=== PATIENT | male | born 1975 | race Caucasian/White ===

== ENCOUNTER 2017-09-30 15:57 | Inpatient (IN) ==
[2017-09-30] MEDS ORDERED: SODIUM CHLORIDE 0.9% 1,000 ML IV STA (16:15)
[2017-09-30] MEDS ORDERED: ONDANSETRON 4 MG/2 ML VIAL IV STA (16:15)
[2017-09-30] MEDS ORDERED: CLINDAMYCIN INJ 600 MG in PREMIX 1 EACH IV STA (16:16)
[2017-09-30 16:36] LABS: Basophils % 0.7 % (0.0-0.8); Eosinophils # 0.1 10*3/uL (0.0-0.87); Eosinophils % 0.8 % (0.00-10.9); Hematocrit 42.2 VOL% (42.0-52.0); Hemoglobin 15.4 GM/DL (14.0-18.0); Immature Granulocytes % 0.7 %; Immature Granulocytes Absolute 0.04 #; Lymphocytes # 1.9 10*3/uL (1.4-4.0); Lymphocytes % 30.8 % (21.2-54.2); Mean Corpuscular HGB Conc 36.5 GM/DL (32-36); Mean Corpuscular Hemoglobin 31 PG (27-34); Mean Corpuscular Volume 83.9 FL (87-102); Mean Platelet Volume 9.4 FL (9.6-12.0); Monocytes # 0.5 10*3/uL (0.11-0.8); Monocytes % 8.6 % (1.7-12.7); Neutrophils # 3.5 10*3/uL (1.4-7.4); Neutrophils % 58.4 % (38.7-73.9); Platelet Count 307 T/CUMM (130-400); Red Blood Count 5.03 MC/CUMM (3.8-5.5); Red Cell Distribution Width 12.7 % (9.3-17.3)
[2017-09-30] MEDS ORDERED: ONDANSETRON 4 MG/2 ML VIAL ONE (16:54)
[2017-09-30] MEDS ORDERED: CLINDAMYCIN INJ 50 ML IV ONE (16:55)
[2017-09-30 17:05] LABS: Alanine Aminotransferase 19 U/L (16-61); Albumin 4.3 G/DL (3.4-5.0); Alkaline Phosphatase 105 U/L (45-117); Aspartate Amino Transferase 19 U/L (0-37); Blood Urea Nitrogen 12 MG/DL (7-18); Calcium 9.6 MG/DL (8.5-10.1); Glucose 103 MG/DL (74-106); Osmolality,Calculated 278.4 MOS/KG (273-304); Potassium 3.9 MMOL/L (3.5-5.1); Sodium 140 MMOL/L (136-145); Total Protein 7.8 G/DL (6.4-8.3)
[2017-09-30] MEDS ORDERED: methylPREDNISolone SOD SUC 125 MG/2 ML VIAL IV STA (17:37)
[2017-09-30] MEDS ORDERED: methylPREDNISolone SOD SUC 125 MG/2 ML VIAL ONE (18:04)
[2017-09-30] MEDS ORDERED: ACETAMINOPHEN 325 MG TABLET PO PRN (18:12)
[2017-09-30] MEDS: LACTATED RINGERS 1,000 ML IV SCH (18:37)
[2017-09-30] MEDS: methylPREDNISolone SOD SUC 40 MG/1 ML VIAL IV SCH (22:04)
[2017-09-30] MEDS: ONDANSETRON 4 MG/2 ML VIAL IV PRN (23:06)
[2017-09-30] MEDS: CLINDAMYCIN INJ 600 MG in PREMIX 1 EACH IV SCH (23:10)
[2017-10-01] MEDS: LACTATED RINGERS 1,000 ML IV SCH ×3 (02:11→20:33)
[2017-10-01] MEDS: methylPREDNISolone SOD SUC 40 MG/1 ML VIAL IV SCH ×3 (05:03→22:19)
[2017-10-01] MEDS: ONDANSETRON 4 MG/2 ML VIAL IV PRN ×2 (05:05→15:19)
[2017-10-01] MEDS: CLINDAMYCIN INJ 600 MG in PREMIX 1 EACH IV SCH ×3 (08:15→23:13)
[2017-10-01] MEDS: PANTOPRAZOLE 40 MG TABLET PO SCH (08:16)
[2017-10-01] MEDS: LEVOFLOXACIN INJ 500 MG in PREMIX 1 EACH IV SCH (20:31)
[2017-10-02] MEDS: methylPREDNISolone SOD SUC 40 MG/1 ML VIAL IV SCH ×3 (05:38→21:28)
[2017-10-02] MEDS: LACTATED RINGERS 1,000 ML IV SCH ×2 (07:54→16:53)
[2017-10-02] MEDS ORDERED: PANTOPRAZOLE 40 MG TABLET PO SCH (09:00)
[2017-10-02] MEDS: FLUTICASONE 50 MCG NASAL SPRAY 16 GM BOTTLE BOTH NARES SCH (09:17)
[2017-10-02] MEDS: PANTOPRAZOLE 40 MG TABLET PO SCH (09:19)
[2017-10-02] MEDS: CLINDAMYCIN INJ 600 MG in PREMIX 1 EACH IV SCH ×2 (09:20→16:55)
[2017-10-02] MEDS ORDERED: ZALEPLON 5 MG CAPSULE PO PRN (11:55)
[2017-10-02] MEDS: ONDANSETRON 4 MG/2 ML VIAL IV PRN ×2 (12:33→17:42)
[2017-10-02] MEDS: LEVOFLOXACIN INJ 500 MG in PREMIX 1 EACH IV SCH (21:30)
[2017-10-03] MEDS: CLINDAMYCIN INJ 600 MG in PREMIX 1 EACH IV SCH ×3 (02:53→16:10)
[2017-10-03] MEDS: LACTATED RINGERS 1,000 ML IV SCH ×2 (02:53→12:11)
[2017-10-03] MEDS: ONDANSETRON 4 MG/2 ML VIAL IV PRN (02:53)
[2017-10-03] MEDS: methylPREDNISolone SOD SUC 40 MG/1 ML VIAL IV SCH ×3 (06:09→21:49)
[2017-10-03] MEDS: FLUTICASONE 50 MCG NASAL SPRAY 16 GM BOTTLE BOTH NARES SCH (08:24)
[2017-10-03] MEDS: PANTOPRAZOLE 40 MG TABLET PO SCH (08:25)
[2017-10-03] MEDS ORDERED: MIDAZOLAM 2 MG/2 ML VIAL ONE ×2 (11:43→14:18)
[2017-10-03] MEDS ORDERED: SCOPOLAMINE 1.5 MG PATCH TRANSDERM ONE (11:43)
[2017-10-03] MEDS ORDERED: MUPIROCIN 2% OINT 22 GM TUBE TOP ONE (11:57)
[2017-10-03] MEDS ORDERED: LIDOCAINE 1%/EPI INJ 20 ML VIAL ONE (11:57)
[2017-10-03] MEDS ORDERED: DEXAMETHASONE 20 MG/5 ML VIAL ONE (12:04)
[2017-10-03] MEDS ORDERED: SEVOFLURANE 1 UNIT/15 MINUTE INH ONE (12:04)
[2017-10-03] MEDS ORDERED: PROPOFOL 200 MG/20 ML VIAL IV ONE (14:17)
[2017-10-03] MEDS ORDERED: NEOSTIGMINE 10 MG/10 ML VIAL ONE (14:18)
[2017-10-03] MEDS ORDERED: ROCURONIUM 100 MG/10 ML VIAL IV ONE (14:18)
[2017-10-03] MEDS ORDERED: fentaNYL 100 MCG/2 ML VIAL ONE (14:18)
[2017-10-03] MEDS ORDERED: ONDANSETRON 4 MG/2 ML VIAL ONE (14:18)
[2017-10-03] MEDS ORDERED: GLYCOPYRROLATE 0.4 MG/2 ML VIAL ONE (14:18)
[2017-10-03] MEDS ORDERED: MEPERIDINE 25 MG/1 ML VIAL ONE (14:23)
[2017-10-03] MEDS ORDERED: MEPERIDINE 25 MG/1 ML VIAL IV PRN (14:36)
[2017-10-03] MEDS: LEVOFLOXACIN INJ 500 MG in PREMIX 1 EACH IV SCH (21:50)
[2017-10-04] MEDS: LACTATED RINGERS 1,000 ML IV SCH ×2 (00:29→14:53)
[2017-10-04] MEDS: CLINDAMYCIN INJ 600 MG in PREMIX 1 EACH IV SCH ×3 (00:30→17:43)
[2017-10-04] MEDS: FLUTICASONE 50 MCG NASAL SPRAY 16 GM BOTTLE BOTH NARES SCH (08:07)
[2017-10-04] MEDS: PANTOPRAZOLE 40 MG TABLET PO SCH (08:09)
[2017-10-04 15:25] VITALS: BP 117/65
== END 2017-10-04 18:48 | disposition home or self-care (01) | DRG 133 ==
LOC: N.ED 15:57 → N.EDINP 17:50 → N.2E 18:11
PROVIDERS: ADMIT Otolaryngology; ATTEND Otolaryngology